=== PATIENT | male | born 1955 | race Caucasian/White ===

== ENCOUNTER 2020-09-12 17:12 | Inpatient (IN) | payer OTHER ==
--- NOTE | 2020-09-12 17:39 | CT ---
Head CT without contrast 09/12/2020: COMPARISON: 02/10/2019 HISTORY: Hypotension, altered mental status TECHNIQUE: Axial CT imaging at 5 mm intervals from vertex through skull base without contrast FINDINGS: There is periorbital soft tissue swelling on the right. The visualized paranasal sinuses and mastoid air cells are well-aerated. There is no displaced calvar ial fracture. There is moderate diffuse cerebral volume loss with associated prominence of the CSF containing space s. No intracranial hemorrhage, midline shift, or mass effect. IMPRESSION: Cerebral volume loss with no intracranial hemorrhage or displaced calvarial fracture. The re is right periorbital soft tissue swelling.
[2020-09-12] MEDS ORDERED: Lorazepam 2 MG/ML VIAL ONE (17:53)
[2020-09-12] MEDS ORDERED: Rocuronium Bromide 10 MG/ML (10ML VIAL) ONE ×2 (18:06→18:07)
[2020-09-12 18:38] LABS: Actual Bicarbonate (HCO3a) 18.2 mEq/L (22-28); Analyzer IN Cardio ER; CO2 Tension 29.3 mmHg (35.0-45.0); Calcium, Ionized (arterial) 1.05 mmol/L (1.12-1.30); O2 Tension (PaO2), arterial 400.7 mmHg (> 80.0); Potassium - ABG Lab 3.84 mmol/L (3.70-5.30); pH, Arterial 7.41 (7.35-7.45)
[2020-09-12] MEDS ORDERED: Midazolam HCl 2 mg/2 ml Vial ONE (18:41)
[2020-09-12] MEDS ORDERED: Fentanyl 100 MCG/2 ML VIAL ONE (18:41)
[2020-09-12 19:00] LABS: Hemoglobin 14.4 g/dL (14.0-18.0); Mean Corpuscular HGB CONC 33.3 g/dL (32.0-36.0); Mean Corpuscular Hemoglobin 32.9 pg (27.0-31.0); Mean Corpuscular Volume 98.8 fL (78.0-98.0); Mean Platelet Volume 7.7 fL (7.4-10.4); Platelet Count 293 thou/uL (130-400); RBC Distribution Width 11.7 % (11.5-14.5); Red Blood Cell (RBC) Count 4.39 mill/uL (4.70-6.10); White Blood Cell (WBC) Count 27.7 thou/uL (4.8-10.8)
[2020-09-12] MEDS ORDERED: fentaNYL Citrate/PF 2,000 MCG in Sodium Chloride 0.9% 60 ML IV SCH (19:00)
[2020-09-12 19:04] LABS: INR-International Normal Ratio 1.3; PTT 32.4 sec (22.9-36.1); Prothrombin Time 16.5 sec (12.0-14.7)
[2020-09-12 19:05] LABS: Acetaminophen Less than 6.0 mcg/mL (10.0-30.0); Alcohol Less than 10 mg/dL (Less than 10); Salicylate Less than 8.0 mg/dL (15.0-30.0)
[2020-09-12] MEDS ORDERED: Piperacillin/Tazobactam 4.5 GM VIAL ONE (19:09)
[2020-09-12 19:12] LABS: ALV-art Gradient -80.825 mmHg (0-20)
[2020-09-12 19:23] LABS: Band 37 % (5-11); Lymphocytes 2 % (21-51); MDiff Complete? YES; Monocytes 10 % (0-10); Neutrophil 50 % (42-75); Platelet Morphology Comment Appears Adequate; Polychromasia SLIGHT = 2-3 cells (100X) (0-2/hpf); Reactive Lymphocytes 1 % (0-10)
[2020-09-12 19:25] LABS: CK (CPK) 6728 U/L (30-200)
--- NOTE | 2020-09-12 19:40 | RAD ---
RADIOGRAPH CHEST 1 VIEW: Date: 09/12/20 Time: 6:58 p.m. HISTORY: 64-year-old male status post intubation. COMPARISON: 02/09/19. FINDINGS: There is a new approximately 6 x 5.5 cm moderately large air space opacity at the left mid-lower lung zone. The rest of the lung antonio are clear. Normal heart size. No mediastinal widening. This is a s upine image, which would be insensitive for pneumothorax detection. New ETT with distal tip at mid th oracic trachea. New esophagogastric tube with distal tip overlying expected location of lower esophag us, approximately 6 to 6.5 cm superior to the esophagogastric junction. IMPRESSION: 1. New moderate sized left sided air space opacity, which could be aspiration, pneumonia or lung contusion. 2. Status post intubation with endotracheal tube. 3. Esophagogastric tube distal tip apparently in the distal esophagus. JN [] POS: JIN
[2020-09-12 19:42] LABS: Bilirubin Negative (Negative); Blood, Urine 2+ (Negative); Clarity Turbid (Clear); Glucose, Urine (Dipstick) Normal (Negative); Ketone, Urine Trace mg/dL (Negative); Leukocyte Negative Leu/uL (Negative); Nitrite Negative (Negative); Protein, Urine (Dipstick) 30 mg/dL (Neg-Trace); RBC/HPF 0-3 HPF (0-3); Squamous Epithelial 0-3 HPF (0-3); pH, Urine 5.5 (5.0-9.0)
[2020-09-12 19:50] LABS: Amphetamine Not Detected (NotDetected); Barbiturates Screen Not Detected (NotDetected); Benzodiazepine Screen Not Detected (NotDetected); Cocaine Metabolite Screen Not Detected (NotDetected); Medtox Control Line Valid? VALID (VALID); Medtox Reader # READER 4; Methadone Not Detected (NotDetected); Methamphetamine Not Detected (NotDetected); Opiate Screen Not Detected (NotDetected); Oxycodone Screen Not Detected (NotDetected); Phencyclidine (PCP) Not Detected (NotDetected); THC/Cannabinoid Screen Detected (NotDetected); Tricyclic Screen Not Detected (NotDetected)
[2020-09-12 19:52] LABS: Bacteria/HPF 1+ HPF (None Seen)
[2020-09-12 19:58] LABS: CKMB 40.5 ng/mL (0-6.6)
[2020-09-12] MEDS ORDERED: Vancomycin 1 GM/200 ML BAG ONE (20:04)
--- NOTE | 2020-09-12 20:09 | CT ---
CT of the facial bones: 09/12/2020 COMPARISON: None HISTORY: Fall, trauma, pain FINDINGS: Incompletely imaged orogastric tube and endotracheal tube present. Comminuted bilateral nasal bone fractures are noted. There is an impacted fracture of the osseous vicenta al septum as well. The frontal sinuses, sphenoid sinuses, ethmoid air cells, and maxillary sinuses are grossly unremarkable aside from mild mucosal thickening involving the alveolar recess of bilatera l maxillary sinuses. There is fluid and debris within the posterior aspect of the nasal cavity bilaterally and in the orop haryngeal region. Neither temporomandibular joint is dislocated. There is no displaced mandibular or maxillary fracture . There is soft tissue swelling in the right periorbital region. The orbital floor and medial orbital w all appears intact bilaterally. IMPRESSION: Soft tissue swelling. Bilateral nasal bone fractures and fracture of the osseous nasal se ptum.
[2020-09-12 20:10] LABS: SARS-CoV-2 NAA Rapid Test Not Detected (NotDetected)
[2020-09-12] MEDS ORDERED: Bacitracin 1 PK ONE (20:13)
--- NOTE | 2020-09-12 20:13 | CT ---
CT of the cervical spine without contrast: 09/12/2020 COMPARISON: Fall, trauma, pain TECHNIQUE: There is moderate degenerative change at the atlantoaxial interspace. The craniocervical j unction, the atlantoaxial interspace, and the cervicothoracic junction demonstrate no acute findings. No anterolisthesis or retrolisthesis. No prevertebral soft tissue swelling is noted. The C1 ring, the occipital condyles, the dens, and the C1-2 articulation demonstrate no acute finding s. The imaged lung apices are unremarkable. There are mild anterior wedge compression fractures at the C7, T1, and T2 levels, which are felt to m ost likely represent remote fractures as no discrete prevertebral soft tissue swelling is seen in these regions. Findings could be best assessed via follow-up MRI if clinically warranted. C2-3: Facet hypertrophy on the left causes left neural foraminal stenosis. No osseous cause of signif icant central canal or right neural foraminal stenosis. C3-4: Bilateral facet and uncovertebral osteophyte formation, left greater than right areas moderate left neural foraminal stenosis. No significant central canal stenosis. C4-5: Bilateral facet and uncovertebral osteophyte formation, right greater than left, with prominent bilateral neural foraminal stenosis. C5-6: Prominent left-sided facet and uncovertebral osteophyte formation with associated left neural f oraminal stenosis. C6-7: Left-sided facet and uncovertebral osteophyte formation with no osseous cause of significant ce ntral canal stenosis. C7-T1: Mild bilateral facet hypertrophy, right greater than left. No displaced cervical spine fracture is apparent. IMPRESSION: Multilevel cervical spine degenerative change. Mild anterior wedging of the C7, T1, and T 2 vertebral bodies which may represent age indeterminant, probably remote, anterior wedge compression fractures. Findings could be best assessed via follow-up MRI if clinically warranted.
[2020-09-12 20:57] LABS: ALT (SGPT) 93 U/L (8-55); AST (SGOT) 319 U/L (5-34); Albumin 2.7 g/dL (3.4-4.8); Alkaline Phosphatase 57 U/L (40-110); Anion Gap 24 mmol/L (10-20); BUN (Urea Nitrogen) 26 mg/dL (8.4-25.7); Bilirubin, Total 1.2 mg/dL (0.2-1.2); Calc. Creatinine Clearance 0 mL/min (70-130); Calcium 7.6 mg/dL (7.8-10.44); Carbon Dioxide 15 mmol/L (23-31); Chloride 104 mmol/L (98-107); Estimated GFR-MDRD 66; Globulin 4.4 g/dL (2.4-3.5); Glucose 141 mg/dL (80-115); Lipase 14 U/L (8-78); Magnesium 1.7 mg/dL (1.6-2.6); Protein, Total 7.1 g/dL (5.8-8.1); Sodium 139 mmol/L (136-145)
[2020-09-12] MEDS ORDERED: Acetaminophen 650 MG Suppository PR PRN (21:12)
[2020-09-12] MEDS ORDERED: Acetaminophen 325 MG TAB PO PRN (21:12)
[2020-09-12] MEDS ORDERED: Ventilator Sedation Protocol 1 EACH FS ONE (21:12)
--- NOTE | 2020-09-12 21:20 | PDOC.HHP ---
Hospitalist HPI - History of Present Illness altered mental state History of Present Illness: history is limited, most of the information taken from ems and emr records. during my evaluation patient was on MV and no family members were present at the moment of my evaluation. Case of an 64y/o male with pmhx of htn, seizures and alcohol abuse who presents via EMS after being found unresponsive at home. apparently found him on the floor and called ems. last seen normally 48hrs ago. found shivering hypotensive and hypothermic with pressure ulcer on face suggestive of prolonged time at floor. at ed patient was evaluated found on sepsis due to pneumonia, was intubated and hospitalist was called for further evaluation and management. Hospitalist ROS - Review of Systems ROS unobtainable: due to mental status Hospitalist History - Past Surgical History Past Surgical History: reports: Appendectomy - Family History Other Family History: unable to assses due to MV - Social History Smoking Status: Former smoker Alcohol: reports: Heavy Drugs: reports: none Living Situation: With Family - Exam General Appearance: ill appearing Eye - other findings: fixed b/l pupils ENT - other findings: ulcer vs contossium to R side face Neck - other findings: no gag reflex Heart: RRR, no murmur, no gallops Respiratory: CTAB, no wheezes, no rales Gastrointestinal: soft, non-tender, non-distended, normal bowel sounds Extremities: no cyanosis, no clubbing, no edema Neurological - other findings: sedated Musculoskeletal: normal tone, no muscle wasting Psychiatric - other findings: sedated Hospitalist Results - Labs Result Diagrams: 09/12/20 18:39 09/12/20 20:23 Lab results: WBC 27.7 thou/uL (4.8-10.8) H 09/12/20 18:39 Hgb 14.4 g/dL (14.0-18.0) 09/12/20 18:39 Hct 43.4 % (42.0-52.0) 09/12/20 18:39 MCV 98.8 fL (78.0-98.0) H 09/12/20 18:39 Plt Count 293 thou/uL (130-400) 09/12/20 18:39 Band Neuts % (Manual) 37 % (5-11) H 09/12/20 18:39 ABG pH 7.41 (7.35-7.45) 09/12/20 18:36 ABG pCO2 29.3 mmHg (35.0-45.0) L 09/12/20 18:36 ABG pO2 400.7 mmHg (> 80.0) H 09/12/20 18:36 Sodium 139 mmol/L (136-145) 09/12/20 20:23 Potassium 4.0 mmol/L (3.5-5.1) 09/12/20 20:23 Chloride 104 mmol/L (98-107) 09/12/20 20:23 Carbon Dioxide 15 mmol/L (23-31) L 09/12/20 20:23 BUN 26 mg/dL (8.4-25.7) H 09/12/20 20:23 Creatinine 1.13 mg/dL (0.7-1.3) 09/12/20 20:23 Glucose 141 mg/dL (80-115) H 09/12/20 20:23 Lactic Acid 3.6 mmol/L (0.5-2.2) H 09/12/20 18:39 Calcium 7.6 mg/dL (7.8-10.44) L 09/12/20 20:23 Total Bilirubin 1.2 mg/dL (0.2-1.2) 09/12/20 20:23 AST 319 U/L (5-34) H 09/12/20 20:23 ALT 93 U/L (8-55) H 09/12/20 20:23 Alkaline Phosphatase 57 U/L (40-110) 09/12/20 20:23 Creatine Kinase 6728 U/L (30-200) H 09/12/20 18:12 CK-MB (CK-2) 40.5 ng/mL (0-6.6) H* 09/12/20 18:12 Troponin I 0.100 ng/mL (< 0.028) H 09/12/20 18:12 Serum Total Protein 7.1 g/dL (5.8-8.1) 09/12/20 20:23 Albumin 2.7 g/dL (3.4-4.8) L 09/12/20 20:23 Lipase 14 U/L (8-78) 09/12/20 20:23 Urine Ketones Trace mg/dL (Negative) A 09/12/20 18:51 Urine Blood 2+ (Negative) A 09/12/20 18:51 Urine Nitrite Negative (Negative) 09/12/20 18:51 Ur Leukocyte Esterase Negative Parul/uL (Negative) 09/12/20 18:51 Urine RBC 0-3 HPF (0-3) 09/12/20 18:51 Urine WBC 7-10 HPF (0-3) A 09/12/20 18:51 Ur Squamous Epith Cells 0-3 HPF (0-3) 09/12/20 18:51 Urine Bacteria 1+ HPF (None Seen) A 09/12/20 18:51 Hospitalist H&P A/P - Problem (1) Altered mental state Code(s): R41.82 - ALTERED MENTAL STATUS, UNSPECIFIED Status: Acute (2) Sepsis Code(s): A41.9 - SEPSIS, UNSPECIFIED ORGANISM Status: Acute (3) Pneumonia Code(s): J18.9 - PNEUMONIA, UNSPECIFIED ORGANISM Status: Acute (4) Hx of seizure disorder Code(s): Z86.69 - PERSONAL HISTORY OF DIS OF THE NERVOUS SYS AND SENSE ORGANS Status: Acute (5) Alcohol abuse Code(s): F10.10 - ALCOHOL ABUSE, UNCOMPLICATED Status: Acute (6) Hypertension Code(s): I10 - ESSENTIAL (PRIMARY) HYPERTENSION Status: Acute - Plan Plan: Case of an 64y/o male with the stated pmhx who was found unresponsive by altered mental state - last seen normally 48hrs ago - requiring MV for airway protection - pulmo/crit consulted - unclear etiology seizures vs sepsis vs metabolic vs cva - consider mri if no improvement of symptoms - head ct negative for intracraneal process - normal tsh sepsis vs sirs - elevated wbc in 27k + elevated LA at 3.6 + hypotension + tachycardia + hypoythermia, cxr suggestive of consolidation, aspiration vs pneumonia - f/u cultures - given vanc + zosyn at ED, will continue zosyn - sepsis bundles - started on ivfs, broad spectrum abx given, cultures taken - f/u LA - continue ivfs hx of seizures - seizures could have been initial presentation, has hx of medication poor com pliance on previous admission - will start keppra iv - eeg - neurology consulted - currently sedated elevated cpk - consistent with hx of prolonged unresponsiveness on floor - no renal failure krystal, continue to monitor - no electrolyte imbalance - aggressive ivfs to prevent renal damage alcohol abuse hx -ase protocol
[2020-09-12] MEDS ORDERED: Fentanyl BOLUS 250 ML IVPB PRN (22:00)
[2020-09-12] MEDS ORDERED: Thiamine HCl 200 MG/2 ML VIAL IM SCH (22:00)
[2020-09-12] MEDS ORDERED: Propofol BOLUS 1,000 MG/100 ML VIAL IV PRN (22:00)
[2020-09-12] MEDS ORDERED: DISCONTINUE PREVIOUS NARCOTIC PAIN MEDICATIONS AND BENZODIAZEPINES FS SCH (22:00)
[2020-09-12] MEDS ORDERED: Lorazepam 2 MG/ML VIAL SLOW IVP PRN ×2 (22:00→22:01)
[2020-09-12] MEDS ORDERED: Morphine 2 MG/ML VIAL SLOW IVP PRN (22:00)
[2020-09-12] MEDS ORDERED: Propofol 1,000 MG/100 ML VIAL IV PRN (22:00)
[2020-09-12 22:13] VITALS: BMI 18.8
[2020-09-12] MEDS: Sodium Chloride 0.9% 1,000 ML IV SCH (23:46)
[2020-09-12] MEDS: Piperacillin/Tazobactam 4.5 GM in Sodium Chloride 0.9% 100 ML IVPB SCH (23:47)
[2020-09-13 01:29] LABS: Troponin I 0.043 ng/mL (< 0.028)
[2020-09-13 04:23] LABS: ALT (SGPT) 134 U/L (8-55); AST (SGOT) 350 U/L (5-34); Albumin 2.4 g/dL (3.4-4.8); Alkaline Phosphatase 45 U/L (40-110); Anion Gap 16 mmol/L (10-20); BUN (Urea Nitrogen) 24 mg/dL (8.4-25.7); Bilirubin, Total 0.7 mg/dL (0.2-1.2); Calc. Creatinine Clearance 62 mL/min (70-130); Calcium 7.5 mg/dL (7.8-10.44); Carbon Dioxide 20 mmol/L (23-31); Chloride 108 mmol/L (98-107); Estimated GFR-MDRD 78; Globulin 3.8 g/dL (2.4-3.5); Glucose 103 mg/dL (80-115); Potassium 3.4 mmol/L (3.5-5.1); Protein, Total 6.2 g/dL (5.8-8.1); Sodium 141 mmol/L (136-145)
[2020-09-13 05:05] LABS: Band 23 % (5-11); Hemoglobin 13.5 g/dL (14.0-18.0); Lymphocytes 10 % (21-51); MDiff Complete? YES; Mean Corpuscular HGB CONC 32.4 g/dL (32.0-36.0); Mean Corpuscular Hemoglobin 32.1 pg (27.0-31.0); Mean Corpuscular Volume 99.1 fL (78.0-98.0); Monocytes 11 % (0-10); Neutrophil 56 % (42-75); Platelet Count 253 thou/uL (130-400); RBC Distribution Width 11.9 % (11.5-14.5); Red Blood Cell (RBC) Count 4.22 mill/uL (4.70-6.10); White Blood Cell (WBC) Count 15.5 thou/uL (4.8-10.8)
[2020-09-13] MEDS: Piperacillin/Tazobactam 4.5 GM in Sodium Chloride 0.9% 100 ML IVPB SCH ×2 (05:39→11:30)
[2020-09-13] MEDS: Sodium Chloride 0.9% 1,000 ML IV SCH ×2 (05:39→15:10)
[2020-09-13 06:22] LABS: Actual Bicarbonate (HCO3a) 19.3 mEq/L (22-28); Base Excess (BEa) -2.3 mEq/L (-2.0 to +3.0); CO2 Tension 25.6 mmHg (35.0-45.0); Calcium, Ionized (arterial) 1.06 mmol/L (1.12-1.30); Carboxyhemoglobin (COHb) 0.5 gm% (0.0-3.0); Hemoglobin (Hb) 13.7 g/dL (14.0-18.0); O2 Tension (PaO2), arterial 171.7 mmHg (> 80.0); Potassium - ABG Lab 3.28 mmol/L (3.70-5.30); Puncture Site RRA
[2020-09-13] MEDS: Famotidine/PF 20 mg/2ml Vial SLOW IVP SCH ×2 (08:14→20:50)
[2020-09-13] MEDS ORDERED: Multivitamin W/ Minerals 1 TAB PO SCH (09:00)
[2020-09-13] MEDS ORDERED: Prevnar 13-Val Conj/PF 0.5 ML SYRINGE IM ONE (09:00)
[2020-09-13] MEDS ORDERED: Folic Acid 1 MG TAB PO SCH (09:00)
[2020-09-13] MEDS ORDERED: levETIRAcetam in NS 1,000 MG in Premix Bag 1 BAG IVPB SCH (09:00)
[2020-09-13] MEDS ORDERED: Enoxaparin Sodium 40 MG/0.4 ML SYRINGE SC SCH (09:00)
[2020-09-13] MEDS ORDERED: Thiamine 100 MG TAB PO SCH (09:00)
[2020-09-13] MEDS ORDERED: Magnesium Oxide 400 MG TAB PO SCH (09:00)
[2020-09-13] MEDS ORDERED: FLU VACC QS2020-21(6MOS UP)/PF 60 MCG/0.5 ML SYRINGE IM ONE (09:00)
[2020-09-13] MEDS ORDERED: levETIRAcetam in NS 2,000 MG in Premix Bag 1 BAG IVPB SCH (09:45)
[2020-09-13] MEDS ORDERED: Lorazepam 2 MG/ML VIAL SLOW IVP SCH (10:00)
[2020-09-13] MEDS ORDERED: levETIRAcetam 2,000 MG, Admixture Fee 1 EACH in Sodium Chloride 0.9% 100 ML IVPB SCH (10:15)
[2020-09-13] MEDS ORDERED: Cefepime 2 GM in Sodium Chloride 0.9% 100 ML IVPB SCH (13:00)
--- NOTE | 2020-09-13 13:06 | CON ---
NEUROLOGY CONSULTATION DATE OF CONSULTATION: 09/13/2020 REASON FOR CONSULTATION: Altered mental status. HISTORY OF PRESENT ILLNESS: Mr. Dick Hurt is a 64-year-old male with history significant for hypertension, seizure disorder, and alcohol abuse, presented by EMS after being found unresponsive at home. Apparently, the found him at home and called the EMS. He was last seen normal 48 hours ago and was found shivering, hypotensive and has a pressure ulcer on his face which shows that he has been on the ground for a long period of time. He was brought to the emergency room where he was found to be in sepsis due to pneumonia and was intubated and sedated and admitted for further management. There was a concern about seizure activity, so Neurology was consulted. Neurology was consulted for further evaluation and management. REVIEW OF SYSTEMS: Unobtainable due to mental status. PAST SURGICAL HISTORY: Appendectomy. History obtained from the review of the medical records. FAMILY HISTORY: No significant family history. PAST MEDICAL HISTORY: Hypertension, seizures, and alcohol abuse. SOCIAL HISTORY: The patient lives with family. He is a heavy drinker and former smoker. Allergies: No known drug allergies PHYSICAL EXAMINATION: 97/52 15 74 101.2 GENERAL APPEARANCE: Ill-appearing. He is intubated and sedated. CVS: Regular rate and rhythm. CHEST: Clear. ABDOMEN: Soft. NECK: Supple. NEUROLOGICAL EXAMINATION: Mental status: The patient is intubated and sedated. He does not follow commands. He does not maintain eye contact. Cranial nerves, pupils are round and minimally reactive to light. Face symmetric. Tongue midline. No gaze preference. Motor: Muscle tone and bulk are normal. No spontaneous movement of all 4 extremities seen. Sensory: Withdraws all 4 extremities to nailbed pressure. Cerebellar: Unable to perform secondary to sedation. Gait deferred and unable to perform secondary to sedation. DATA REVIEWED: I reviewed the data which was significant for white count of 27.7 and glucose of 141. Lab results: WBC 27.7 thou/uL (4.8-10.8) H 09/12/20 18:39 Hgb 14.4 g/dL (14.0-18.0) 09/12/20 18:39 Hct 43.4 % (42.0-52.0) 09/12/20 18:39 MCV 98.8 fL (78.0-98.0) H 09/12/20 18:39 Plt Count 293 thou/uL (130-400) 09/12/20 18:39 Band Neuts % (Manual) 37 % (5-11) H 09/12/20 18:39 ABG pH 7.41 (7.35-7.45) 09/12/20 18:36 ABG pCO2 29.3 mmHg (35.0-45.0) L 09/12/20 18:36 ABG pO2 400.7 mmHg (> 80.0) H 09/12/20 18:36 Sodium 139 mmol/L (136-145) 09/12/20 20:23 Potassium 4.0 mmol/L (3.5-5.1) 09/12/20 20:23 Chloride 104 mmol/L (98-107) 09/12/20 20:23 Carbon Dioxide 15 mmol/L (23-31) L 09/12/20 20:23 BUN 26 mg/dL (8.4-25.7) H 09/12/20 20:23 Creatinine 1.13 mg/dL (0.7-1.3) 09/12/20 20:23 Glucose 141 mg/dL (80-115) H 09/12/20 20:23 Lactic Acid 3.6 mmol/L (0.5-2.2) H 09/12/20 18:39 Calcium 7.6 mg/dL (7.8-10.44) L 09/12/20 20:23 Total Bilirubin 1.2 mg/dL (0.2-1.2) 09/12/20 20:23 AST 319 U/L (5-34) H 09/12/20 20:23 ALT 93 U/L (8-55) H 09/12/20 20:23 Alkaline Phosphatase 57 U/L (40-110) 09/12/20 20:23 Creatine Kinase 6728 U/L (30-200) H 09/12/20 18:12 CK-MB (CK-2) 40.5 ng/mL (0-6.6) H* 09/12/20 18:12 Troponin I 0.100 ng/mL (< 0.028) H 09/12/20 18:12 Serum Total Protein 7.1 g/dL (5.8-8.1) 11/24/20 20:23 Albumin 2.7 g/dL (3.4-4.8) L 09/12/20 20:23 Lipase 14 U/L (8-78) 09/12/20 20:23 Urine Ketones Trace mg/dL (Negative) A 09/12/20 18:51 Urine Blood 2+ (Negative) A 09/12/20 18:51 Urine Nitrite Negative (Negative) 09/12/20 18:51 Ur Leukocyte Esterase Negative Parul/uL (Negative) 09/12/20 18:51 Urine RBC 0-3 HPF (0-3) 09/12/20 18:51 Urine WBC 7-10 HPF (0-3) A 09/12/20 18:51 Ur Squamous Epith Cells 0-3 HPF (0-3) 09/12/20 18:51 Urine Bacteria 1+ HPF (None Seen) A 09/12/20 18:51 ASSESSMENT AND PLAN: (1) Altered mental state Code(s): R41.82 - ALTERED MENTAL STATUS, UNSPECIFIED Status: Acute (2) Sepsis Code(s): A41.9 - SEPSIS, UNSPECIFIED ORGANISM Status: Acute (3) Pneumonia Code(s): J18.9 - PNEUMONIA, UNSPECIFIED ORGANISM Status: Acute (4) Hx of seizure disorder Code(s): Z86.69 - PERSONAL HISTORY OF DIS OF THE NERVOUS SYS AND SENSE ORGANS Status: Acute (5) Alcohol abuse Code(s): F10.10 - ALCOHOL ABUSE, UNCOMPLICATED Status: Acute (6) Hypertension Code(s): I10 - ESSENTIAL (PRIMARY) HYPERTENSION Status: Acute Mr. Dick Hurt is a 64-year-old male with history significant for hypertension, alcohol abuse, presented to the emergency room with altered mental status after being found down for a prolonged period of time. He was last seen normal 48 hours ago. The patient was found to be in sepsis due to pneumonia and there was a concern about seizure activity so Neurology was consulted. EEG was performed. 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 He was given Ativan and loaded with 2 g of Keppra and the maintenance dose of Keppra was increased to 1500 mg q.12. There was no effect on the EEG, so he was loaded with fosphenytoin 20 mg/kg and started on a maintenance dose of 100 mg q.8 and propofol was restarted to give brain metabolic rest. Primary attending, Dr. Mcfarland was contacted since we do not have the capability to promote video EEG monitoring which is required for the management of status epilepticus, so the patient can be transferred to another facility. Continue fosphenytoin and Keppra for now. Ativan 2 mg IV for seizure greater than 2 minutes. Observe seizure precautions. Neuro checks every 2 hours. Continue medical management per primary team. Plan discussed in detail with the nursing staff and also with the primary attending, Dr. Mcfarland. We will continue to follow the patient in our facility. Thank you for the consult. Job ID: [id number] [facility]
--- NOTE | 2020-09-13 15:23 | CON ---
DATE OF CONSULTATION: 09/13/2020 HISTORY OF PRESENT ILLNESS: Mr. Hurt is a 64-year-old male, apparently was found down at home. He has a history of heavy alcohol use. It is really not much more available from a history standpoint other than that. Apparently, he had not been seen for several days. He was hypothermic. He had a pressure also on his face. Every bony prominence in his body just about has an abrasion or a pressure ulcer. PAST MEDICAL HISTORY: Remarkable for an appendectomy, is all that is reported. FAMILY HISTORY: Noncontributory. REVIEW OF SYSTEMS: Not obtainable. SOCIAL HISTORY: Remarkable for reported heavy alcohol use. PHYSICAL EXAMINATION: VITAL SIGNS: His temp is 100.9, heart rate in the 90s, respiratory rates per mechanical ventilation. GENERAL: He will awaken and weakly nod. HEENT: Sclerae is anicteric. LUNGS: Remarkable for coarse equal breath sounds. HEART: Regular rhythm. ABDOMEN: Soft and nontender without guarding or masses. EXTREMITIES: Without clubbing, cyanosis, or edema. As mentioned, all his extremities have abrasions on bony prominences. LABORATORY DATA: White count is 15.5, hemoglobin 13.5, platelets 253. Sodium 141, potassium 3.4, chloride 108, bicarb 20, BUN 24, creatinine 0.9. Liver enzymes are elevated, ALT of 350, AST 134, bilirubin is normal. Albumin is 2.4. INR is 1.3. PH 7.5, CO2 of 25, PO2 of 171. IMPRESSION: Status post intubation for altered mental status. Neurology has been consulted. I think a lumbar puncture may be indicated. An EEG was being performed at the time of my consultation. CT of his brain showed no bleed, no stroke with periorbital swelling on the right. There is no history of an altercation. CRITICAL CARE TIME: 30 minutes. Job ID: [id number]
--- NOTE | 2020-09-13 16:08 | PDOC.DS.DS ---
Provider - Provider Date of Admission: 09/12/20 20:54 Date of Discharge: 09/13/20 Admitting Provider: Jeison Pickering Consultations: Neurology (Dr. Deras), Pulmonary (Dr. Lockett) Primary Care Physician: NO PCP PROVIDER Course - Hospital Course Hospital Course: Discharge diagnosis: 1. status epilepticus 2. Sepsis 3. Sepsis secondary to pneumonia 4. Acute hypoxic respiratory failure 5. Hypothermia 6. Rhabdomyolysis 7. Hypokalemia 8. Isolated transaminitis, likely secondary to rhabdomyolysis 9. COVID-19 test negative 10. Urine drug screen positive for cannabinoids Hospital course: Patient is a 64-year-old gentleman who was admitted to the hospital on September 12, 2020 for acute respiratory failure and rhabdomyolysis in the context of being found unresponsive in the floor. He was known to be at baseline 48 hours prior to the presentation. He was found to have pneumonia and was started on antibiotics. He was also intubated and mechanically ventilated. Neurology service was consulted. He had EEG, which showed status epilepticus. He has been started on propofol drip, Keppra and fosphenytoin. Patient needs facility with capability of video EEG monitoring. I put out a request through transfer center. Patient has been accepted at [facility] in [place]. At the time of this dictation, he is awaiting bed at the accepting facility. Resuscitation Status: 09/12/20 21:12 Resuscitation Status Routine Resuscitation Status: FULL: Full Resuscitation - Labs Lab Results: 09/13/20 03:36 09/13/20 03:36 Abnormal Lab Results - Last 48 hrs 09/12/20 18:12: CK-MB (CK-2) 40.5 H*, Troponin I 0.100 H 09/12/20 18:12: Creatine Kinase 6728 H, Salicylates Less than 8.0 L, Acetaminophen Less than 6.0 L 09/12/20 18:36: Bicarbonate Actual 18.2 L, ABG pCO2 29.3 L, ABG pO2 400.7 H, ABG O2 Sat (Measured) 99.6 H, ABG O2 Content 21.9 H, ABG Base Excess -5.0 L, ABG Oxyhemoglobin 98.8 H, A-a O2 Gradient -80.825 L, Ionized Calcium 1.05 L 09/12/20 18:39: WBC 27.7 H, RBC 4.39 L, MCV 98.8 H, MCH 32.9 H, Band Neuts % (Manual) 37 H, Lymphocytes % (Manual) 2 L 09/12/20 18:39: PT 16.5 H 09/12/20 18:39: Lactic Acid 3.6 H 09/12/20 18:51: U Cannabinoids Screen Detected H 09/12/20 18:51: Urine Clarity Turbid A, Urine Protein 30 A, Urine Ketones Trace A, Urine Blood 2+ A, Urine Urobilinogen 2.0 A, Urine WBC 7-10 A, Urine Bacteria 1+ A, Hyaline Casts Greater than 50 A 09/12/20 20:23: Carbon Dioxide 15 L, Anion Gap 24 H, BUN 26 H, Calcium 7.6 L, AST 319 H, ALT 93 H, Albumin 2.7 L, Globulin 4.4 H, Albumin/Globulin Ratio 0.6 L 09/12/20 21:29: Troponin I 0.040 H 09/13/20 00:54: Troponin I 0.043 H 09/13/20 03:36: Potassium 3.4 L, Chloride 108 H, Carbon Dioxide 20 L, Calcium 7.5 L, AST 350 H, ALT 134 H, Albumin 2.4 L, Globulin 3.8 H, Albumin/Globulin Ratio 0.6 L 09/13/20 03:36: WBC 15.5 H, RBC 4.22 L, Hgb 13.5 L, Hct 41.8 L, MCV 99.1 H, MCH 32.1 H, Band Neuts % (Manual) 23 H, Lymphocytes % (Manual) 10 L, Monocytes % (Manual) 11 H 09/13/20 08:13: Bicarbonate Actual 19.3 L, ABG pH 7.50 H, ABG pCO2 25.6 L*, ABG pO2 171.7 H, ABG O2 Sat (Measured) 99.3 H, ABG Base Excess -2.3 L, ABG Hematocrit 40.0 L, ABG Hemoglobin 13.7 L, ABG Oxyhemoglobin 98.6 H, A-a O2 Gradient 81.500 H, Ionized Calcium 1.06 L, Potassium 3.28 L, Chloride 108 H Microbiology - Entire Visit 09/12/20 18:12 Venous blood - Right Arm Blood Culture - Preliminary Coagulase Neg Staphylococcus 09/12/20 18:51 Urine bates catheter Urine Culture - Preliminary 09/12/20 18:39 Venous blood - Left Arm Blood Culture - Preliminary Specimen has been received and culture in progress. No Growth to date. 09/12/20 20:30 Nasal swab Influenza Types A,B Direct EIA - Final - Physical Exam Vitals: Vital Signs (12 hours) Temp Pulse Resp Pulse Ox 09/13/20 14:00 15 09/13/20 13:55 98 09/13/20 12:00 15 09/13/20 10:14 100 09/13/20 10:00 15 09/13/20 08:00 99.0 F 15 100 09/13/20 06:00 15 Weight Admit Weight 124 lb Weight 124 lb 5.451 oz Most Recent Monitor Data Heart Rate from ECG 100 NIBP 90/63 NIBP BP-Mean 72 Respiration from ECG 15 SpO2 90 Physical Exam: The patient was seen and examined on the day of discharge. Patient is intubated and mechanically ventilated, could not complete review of systems. Vital signs are stable. S1 and S2 are heard, regular. Lungs are clear to auscultation bilaterally. Problem - Time spent with Patient (mins): 33 Plan - Discharge Medications Home Medications: Medication Instructions Recorded Confirmed Type Levetiracetam [levETIRAcetam] 500 mg PO BID 03/09/14 03/10/14 History Amlodipine Besylate [amLODIPine 10 mg PO DAILY 03/10/14 03/10/14 History Besylate] Divalproex Sodium [Depakote ER] 1,000 mg PO HS 03/10/14 03/10/14 History Folic Acid [Folvite] 1 mg PO DAILY #0 tab 03/11/14 Rx Multivitamin With Minerals [Daily 1 tablet PO DAILY #0 tablet 03/11/14 Rx Vitamin Formula-Minerals] Thiamine 100 mg PO DAILY #0 tab 03/11/14 Rx Amlodipine [Norvasc] 10 mg PO DAILY 02/12/19 02/12/19 History Divalproex Sodium [Depakote] 250 mg PO DAILY 02/12/19 02/12/19 History Ranitidine HCl 150 mg PO BID 02/12/19 02/12/19 History levETIRAcetam [Keppra] 500 mg PO BID #60 tab 02/12/19 Rx Allergies: No Known Allergies Allergy (Unverified 01/11/20 14:17) - Discharge Instructions Activity:: Activity as Tolerated Nourishment:: Other (NPO) Therapies:: Occupational Therapy, Physical Therapy, Speech Therapy Equipment/Supplies:: Vent Settings - Follow up Plan Referrals: PROVIDER,NO PCP [Primary Care Provider] - 10 Days Disposition: OTHER HOSPITAL INPT Quality - Care Measures CORE MEASURES:: N/A
[2020-09-13 16:43] VITALS: TEMP 98.8
--- NOTE | 2020-09-13 17:57 | PDOC.EEG ---
Neurology EEG Report - Report Report: This EEG was performed using 24 channel [employer] video digital EEG machine with 24 disc electrodes. This was an extended 7 hours 23 minutes of EEG recording. Digital analysis of the EEG was done for Jose and seizure detection which revealed no abnormalities. Background: The posterior background rhythm is not observed Photic stimulation: No response seen with photic stimulation. Hyperventilation: Not performed. Sleep: No stage change was observed. EEG diagnosis: Generalized high bursts intermixed with spikes or isolated spikes lasting for 0.5 seconds alternating with periods of voltage attenuation seen throughout the recording. Absence of posterior background rhythm. Clinical interpretation: This EEG is consistent with severe generalized nonspecific cerebral dysfunction. Partially treated nonconvulsive status epilepticus is high on the differentail. Critical findings were discussed with the primary attending Dr. Mcfarland.
[2020-09-13] MEDS ORDERED: levETIRAcetam in NS 1,500 MG in Premix Bag 1 BAG IVPB SCH (21:00)
== END 2020-09-13 22:08 | disposition short-term general hospital (02) | DRG 871 ==
LOC: ERS 17:12 → CCU 20:54
PROVIDERS: ADMIT Internal Medicine; ATTEND Internal Medicine
PROC: 0BH17EZ Insertion of Endotracheal Airway into Trachea, Via Natural or Artificial Opening (ICD-10-PCS; principal; 2020-09-12)
PROC: 5A1935Z Respiratory Ventilation, Less than 24 Consecutive Hours (ICD-10-PCS; 2020-09-12)
DX: A41.9 Sepsis, unspecified organism (principal); J18.9 Pneumonia, unspecified organism; J96.01 Acute respiratory failure with hypoxia; M62.82 Rhabdomyolysis; Z20.828 Contact with and (suspected) exposure to other viral communicable diseases; G40.901 Epilepsy, unspecified, not intractable, with status epilepticus; T68.XXXA Hypothermia, initial encounter; F10.10 Alcohol abuse, uncomplicated; I10 Essential (primary) hypertension; E87.6 Hypokalemia; Z90.49 Acquired absence of other specified parts of digestive tract; Z87.891 Personal history of nicotine dependence
CPT/HCPCS: 31500; 36415; 36600; 51702; 70450; 70486; 71045; 72125; 80053; 80306; 80307; 81003; 81015; 82550; 82553; 82805; 83605; 83690; 83735; 84145; 84443; 84484; 85007; 85025; 85027; 85610; 85730; 86850; 86900; 86901; 87040; 87077; 87086; 87149; 87186; 87804; 93005; 94003; 94760; 95712; 95819; 95957; 96361; 96365; 96366; 96368; 96375; 99292; J0692; J1650; J1953; J2060; J2250; J2543; J2704; J3010; J3370; J3411; J3475; J3490; Q2009; S0028; U0002